=== PATIENT | female | born 1980 | race Caucasian/White ===

== ENCOUNTER 2020-05-17 09:17 | Emergency (ER) | payer SELFPAY | END 2020-05-17 10:14 | disposition home or self-care (01) | LOC: CSHERS 09:17 | DX: M54.12 Radiculopathy, cervical region (principal); F17.210 Nicotine dependence, cigarettes, uncomplicated | CPT/HCPCS: 99283 ==

== ENCOUNTER 2021-07-21 07:35 | Emergency (ER) | payer BC, SELFPAY ==
[2021-07-21] MEDS ORDERED: diphenhydrAMINE 50 MG/ML VIAL ONE (08:26)
[2021-07-21] MEDS ORDERED: Metoclopramide HCl 10 MG/2 ML VIAL ONE (08:26)
[2021-07-21] MEDS ORDERED: Ketorolac Tromethamine 30 MG/ML VIAL ONE (08:26)
[2021-07-21] MEDS ORDERED: Lidocaine 1% w/Epinephrine 1:100K 20 ML VIAL ONE (08:26)
[2021-07-21 08:28] LABS: #Basophils 0.1 10x3/uL (0.0-0.2); #Eosinphils 0.1 10x3/uL (0.0-0.5); #Monocytes 0.5 10x3/uL (0.0-1.1); #Neutrophils 2.2 10x3/uL (1.5-8.4); %Basophils 1.4 % (0.0-2.0); %Eosinophils 2.5 % (0.0-6.0); %Lymphocytes 33.4 % (18.0-47.0); %Neutrophils 50.5 % (40.0-75.0); Hemoglobin 13.1 g/dL (12.0-15.5); Mean Corpuscular HGB CONC 33.5 g/dL (32.0-36.0); Mean Corpuscular Hemoglobin 30.5 pg (27.0-33.0); Mean Corpuscular Volume 90.9 fl (81.6-98.3); Mean Platelet Volume 12.4 fl (7.4-10.4); Platelet Count 138 10x3/uL (150-450); RBC Distribution Width 12.7 % (11.5-14.5); White Blood Cell (WBC) Count 4.3 10x3/uL (3.5-10.5)
[2021-07-21 08:44] LABS: ALT (SGPT) 19 U/L (8-55); AST (SGOT) 25 U/L (5-34); Albumin 3.8 g/dL (3.5-5.0); Alkaline Phosphatase 39 U/L (40-110); Anion Gap 15 mmol/L (10-20); BUN (Urea Nitrogen) 10 mg/dL (7.0-18.7); Bilirubin, Total 0.2 mg/dL (0.2-1.2); Calc. Creatinine Clearance 0 mL/min (70-130); Calcium 8.2 mg/dL (7.8-10.44); Carbon Dioxide 24 mmol/L (22-29); Chloride 104 mmol/L (98-107); Globulin 2.7 g/dL (2.4-3.5); Glucose 87 mg/dL (70-105); Potassium 4.3 mmol/L (3.5-5.1); Protein, Total 6.5 g/dL (6.0-8.3); Sodium 139 mmol/L (136-145)
[2021-07-21 10:33] LABS: CSF RBC Count - Manual 0 /cu.mm (None Seen); CSF Source CSF; CSF WBC/NonHematics Count-Man 3 /cu.mm (0-5); Clarity Clear (Clear); Tube # 3
== END 2021-07-21 11:02 | disposition home or self-care (01) ==
LOC: CSHERS 07:35
DX: R51.9 Headache, unspecified (principal); R50.9 Fever, unspecified; F17.200 Nicotine dependence, unspecified, uncomplicated
CPT/HCPCS: 62270; 80053; 82945; 83605; 84157; 85025; 87070; 87205; 87804; 89051; 96365; 96366; 96375; J1200; J1885; J2765

== ENCOUNTER 2021-10-02 01:02 | Emergency (ER) | payer BC ==
[2021-10-02] MEDS ORDERED: Pantoprazole 40 MG VIAL ONE (02:17)
[2021-10-02] MEDS ORDERED: diphenhydrAMINE 50 MG/ML VIAL ONE (02:17)
[2021-10-02] MEDS ORDERED: Famotidine/PF 20 mg/2ml Vial ONE (02:17)
[2021-10-02] MEDS ORDERED: Metoclopramide HCl 10 MG/2 ML VIAL ONE (02:17)
[2021-10-02 02:23] LABS: #Basophils 0.1 10x3/uL (0.0-0.2); #Eosinphils 0.3 10x3/uL (0.0-0.5); #Monocytes 0.8 10x3/uL (0.0-1.1); #Neutrophils 4.9 10x3/uL (1.5-8.4); %Eosinophils 3.6 % (0.0-6.0); %Lymphocytes 32.1 % (18.0-47.0); %Monocytes 8.7 % (0.0-10.0); %Neutrophils 54.5 % (40.0-75.0); Hemoglobin 12.5 g/dL (12.0-15.5); Mean Corpuscular Hemoglobin 30.3 pg (27.0-33.0); Mean Corpuscular Volume 89.3 fl (81.6-98.3); Platelet Count 192 10x3/uL (150-450); RBC Distribution Width 13.5 % (11.5-14.5); Red Blood Cell (RBC) Count 4.12 10x6/uL (3.90-5.03); White Blood Cell (WBC) Count 8.9 10x3/uL (3.5-10.5)
[2021-10-02 02:31] LABS: BHCG - Serum Negative (NEGATIVE); Pregs Control Background? CLEAR/WHITE (CLR/WHITE); Pregs Control Bar Appear? YES (CONTROL BAR)
[2021-10-02 02:39] LABS: ALT (SGPT) 13 U/L (8-55); AST (SGOT) 15 U/L (5-34); Albumin 4.4 g/dL (3.5-5.0); Alkaline Phosphatase 39 U/L (40-110); Anion Gap 13 mmol/L (10-20); BUN (Urea Nitrogen) 11 mg/dL (7.0-18.7); Bilirubin, Total 0.2 mg/dL (0.2-1.2); Calc. Creatinine Clearance 0 mL/min (70-130); Calcium 9.2 mg/dL (7.8-10.44); Carbon Dioxide 25 mmol/L (22-29); Chloride 105 mmol/L (98-107); Estimated GFR 113; Glucose 87 mg/dL (70-105); Lipase 35 U/L (8-78); Potassium 3.9 mmol/L (3.5-5.1); Protein, Total 7.4 g/dL (6.0-8.3); Sodium 139 mmol/L (136-145)
[2021-10-02 02:55] LABS: Bilirubin Neg (Negative); Blood, Urine Negative (Negative); Clarity Clear (Clear); Glucose, Urine (Dipstick) Normal (Negative); Ketone, Urine Negative (Negative); Leukocyte Negative (Negative); Nitrite Negative (Negative); Protein, Urine (Dipstick) Negative (Neg-Trace); Urobilinogen Normal mg/dL (Less than 2)
[2021-10-02] MEDS ORDERED: Iopamidol 300 61% 100 ML VIAL FS ONE (14:51)
== END 2021-10-02 03:44 | disposition home or self-care (01) ==
LOC: CSHERS 01:02
DX: K52.9 Noninfective gastroenteritis and colitis, unspecified (principal); F17.290 Nicotine dependence, other tobacco product, uncomplicated
CPT/HCPCS: 74177; 80053; 81003; 83690; 84703; 85025; 93005; 96365; 96375; C9113; J1200; J2765; Q9967; S0028

== ENCOUNTER 2022-05-02 11:23 | Inpatient (IN) | payer BC, SELFPAY ==
[~2022-05-02 11:23] MED LIST: Iopamidol 300 61% 100 ML VIAL FS ONE
[2022-05-02 12:13] LABS: Hemoglobin 13.7 g/dL (12.0-15.5); MDiff Complete? YES; Mean Corpuscular HGB CONC 32.8 g/dL (32.0-36.0); Mean Corpuscular Hemoglobin 29.8 pg (27.0-33.0); Mean Corpuscular Volume 90.9 fl (81.6-98.3); Mean Platelet Volume 12.1 fl (7.4-10.4); Platelet Count 221 10x3/uL (150-450); RBC Distribution Width 12.9 % (11.5-14.5); White Blood Cell (WBC) Count 10.6 10x3/uL (3.5-10.5)
[2022-05-02 12:16] LABS: Bilirubin Neg (Negative); Blood, Urine 250 (Negative); Clarity Slightly Cloudy (Clear); Glucose, Urine (Dipstick) Normal (Negative); Ketone, Urine 50 mg/dL (Negative); Leukocyte Negative (Negative); Nitrite Negative (Negative); Protein, Urine (Dipstick) 15 mg/dl (Neg-Trace); Urobilinogen Normal mg/dL (Less than 2)
[2022-05-02 12:20] LABS: BHCG - Serum Negative (NEGATIVE); Pregs Control Background? CLEAR/WHITE (CLR/WHITE); Pregs Control Bar Appear? YES (CONTROL BAR)
[2022-05-02 12:26] LABS: ALT (SGPT) 13 U/L (8-55); AST (SGOT) 16 U/L (5-34); Albumin 4.6 g/dL (3.5-5.0); Alkaline Phosphatase 46 U/L (40-110); Anion Gap 13 mmol/L (10-20); BUN (Urea Nitrogen) 10 mg/dL (7.0-18.7); Bilirubin, Total 0.6 mg/dL (0.2-1.2); Calc. Creatinine Clearance 0 mL/min (70-130); Carbon Dioxide 25 mmol/L (22-29); Chloride 104 mmol/L (98-107); Estimated GFR 97; Globulin 3.1 g/dL (2.4-3.5); Glucose 87 mg/dL (70-105); Lipase 19 U/L (8-78); Potassium 4.4 mmol/L (3.5-5.1); Protein, Total 7.7 g/dL (6.0-8.3); Sodium 138 mmol/L (136-145)
[2022-05-02] MEDS ORDERED: Dicyclomine 20 MG/2 ML VIAL ONE (12:26)
[2022-05-02] MEDS ORDERED: Ondansetron PF 4 MG/2 ML Vial ONE ×3 (12:26→21:19)
[2022-05-02 12:27] LABS: Band 1 % (5-11); Eosinophils 2 % (0-10); Lymphocytes 12 % (21-51); Monocytes 2 % (0-10); Neutrophil 82 % (42-75); Reactive Lymphocytes 1 % (0-10)
[2022-05-02 12:28] LABS: Bacteria/HPF Rare-Few HPF (None Seen); RBC/HPF 0-3 HPF (0-3); Squamous Epithelial 0-3 HPF (0-3); Yeast-Budding Rare HPF (None Seen)
[2022-05-02 12:28] LABS: Platelet Morphology Comment Appears Adequate
[2022-05-02 12:30] LABS: RBC Morphology Normal
[2022-05-02] MEDS ORDERED: Haloperidol Lactate 5 MG/ML VIAL ONE (13:42)
[2022-05-02] MEDS ORDERED: Fentanyl 100 MCG/2 ML VIAL ONE ×3 (15:37→20:37)
[2022-05-02] MEDS ORDERED: HYDROmorphone 0.5 MG/0.5 ML SYRINGE ONE (17:04)
[2022-05-02 17:23] LABS: SARS-CoV-2 NAA Rapid Test Not Detected (NotDetected)
[2022-05-02] MEDS: Lactated Ringer's 1,000 ML IV SCH (19:00)
[2022-05-02 20:03] VITALS: BMI 21.8
[2022-05-02] MEDS ORDERED: metroNIDAZOLE 500 MG in Premix Bag 1 BAG IVPB SCH (20:15)
[2022-05-02] MEDS ORDERED: Bupivacaine HCl 0.5%/Epinephrine 1:200,000/PF 30 ml Vial ONE (20:27)
[2022-05-02] MEDS ORDERED: Lidocaine 1% PF 5 ML VIAL ONE (20:30)
[2022-05-02] MEDS ORDERED: Rocuronium Bromide 10 MG/ML (10ML VIAL) ONE (20:30)
[2022-05-02] MEDS ORDERED: PROPOFOL 20 ML ONE (20:30)
[2022-05-02] MEDS ORDERED: Succinylcholine 200 MG/10 ml SYRINGE FS ONE (20:31)
[2022-05-02] MEDS ORDERED: Midazolam HCl 2 mg/2 ml Vial ONE (20:39)
[2022-05-02] MEDS: Heparin 5,000 UNITS/ML VIAL SC SCH (21:00)
[2022-05-02] MEDS ORDERED: Dexamethasone 4 mg/ml Vial ONE (21:19)
[2022-05-02] MEDS ORDERED: Glycopyrrolate 0.2 MG/ML 5 ML SYRINGE ONE (21:41)
[2022-05-02] MEDS ORDERED: PHENYLEPHRINE-NS 100 MCG/ML 10 ML SYRINGE ONE (21:54)
[2022-05-02] MEDS ORDERED: diphenhydrAMINE 50 MG/ML VIAL IVP PRN (22:53)
[2022-05-02] MEDS: HYDROmorphone 0.5 MG/0.5 ML SYRINGE SLOW IVP SCH (23:30)
[2022-05-03] MEDS: Lactated Ringer's 1,000 ML IV SCH ×2 (03:30→07:13)
[2022-05-03 04:42] LABS: #Monocytes 0.6 10x3/uL (0.0-1.1); #Neutrophils 17.3 10x3/uL (1.5-8.4); %Basophils 0.1 % (0.0-2.0); %Lymphocytes 2.1 % (18.0-47.0); %Monocytes 3.1 % (0.0-10.0); %Neutrophils 94.3 % (40.0-75.0); Hemoglobin 12.5 g/dL (12.0-15.5); Mean Corpuscular HGB CONC 33.7 g/dL (32.0-36.0); Mean Corpuscular Hemoglobin 29.9 pg (27.0-33.0); Mean Corpuscular Volume 88.8 fl (81.6-98.3); Mean Platelet Volume 11.9 fl (7.4-10.4); Platelet Count 196 10x3/uL (150-450); RBC Distribution Width 12.8 % (11.5-14.5); Red Blood Cell (RBC) Count 4.18 10x6/uL (3.90-5.03); White Blood Cell (WBC) Count 18.4 10x3/uL (3.5-10.5)
[2022-05-03 04:52] LABS: ALT (SGPT) 10 U/L (8-55); AST (SGOT) 14 U/L (5-34); Albumin 3.5 g/dL (3.5-5.0); Alkaline Phosphatase 34 U/L (40-110); Anion Gap 12 mmol/L (10-20); BUN (Urea Nitrogen) 11 mg/dL (7.0-18.7); Bilirubin, Total 0.5 mg/dL (0.2-1.2); Calc. Creatinine Clearance 99 mL/min (70-130); Carbon Dioxide 22 mmol/L (22-29); Chloride 107 mmol/L (98-107); Estimated GFR 112; Globulin 2.3 g/dL (2.4-3.5); Glucose 138 mg/dL (70-105); Potassium 4.1 mmol/L (3.5-5.1); Protein, Total 5.8 g/dL (6.0-8.3); Sodium 137 mmol/L (136-145)
[2022-05-03] MEDS: HYDROmorphone 0.5 MG/0.5 ML SYRINGE SLOW IVP SCH ×3 (06:32→18:20)
[2022-05-03] MEDS: metroNIDAZOLE 500 MG in Premix Bag 1 BAG IVPB SCH ×3 (06:39→22:32)
[2022-05-03] MEDS: Heparin 5,000 UNITS/ML VIAL SC SCH ×2 (09:29→18:17)
[2022-05-03] MEDS: Ketorolac Tromethamine 30 MG/ML VIAL IVP SCH ×4 (09:30→18:17)
[2022-05-03] MEDS: 1/2 NS w/KCL 20 mEq 1,000 ML IV SCH ×3 (12:35→22:44)
[2022-05-04] MEDS: HYDROmorphone 0.5 MG/0.5 ML SYRINGE SLOW IVP SCH ×3 (00:04→12:16)
[2022-05-04 04:24] LABS: #Eosinphils 0.1 10x3/uL (0.0-0.5); #Monocytes 0.7 10x3/uL (0.0-1.1); #Neutrophils 7.3 10x3/uL (1.5-8.4); %Basophils 0.4 % (0.0-2.0); %Eosinophils 0.9 % (0.0-6.0); %Lymphocytes 15.7 % (18.0-47.0); %Neutrophils 75.7 % (40.0-75.0); Hemoglobin 10.6 g/dL (12.0-15.5); Mean Corpuscular HGB CONC 32.8 g/dL (32.0-36.0); Mean Corpuscular Hemoglobin 29.9 pg (27.0-33.0); Platelet Count 158 10x3/uL (150-450); RBC Distribution Width 13.1 % (11.5-14.5); Red Blood Cell (RBC) Count 3.55 10x6/uL (3.90-5.03); White Blood Cell (WBC) Count 9.6 10x3/uL (3.5-10.5)
[2022-05-04 04:34] LABS: Anion Gap 9 mmol/L (10-20); BUN (Urea Nitrogen) 12 mg/dL (7.0-18.7); Calc. Creatinine Clearance 105 mL/min (70-130); Calcium 7.7 mg/dL (7.8-10.44); Carbon Dioxide 25 mmol/L (22-29); Chloride 105 mmol/L (98-107); Estimated GFR 114; Glucose 95 mg/dL (70-105); Potassium 4.4 mmol/L (3.5-5.1); Sodium 135 mmol/L (136-145)
[2022-05-04] MEDS ORDERED: metroNIDAZOLE 500 MG in Premix Bag 1 BAG IVPB SCH (06:00)
[2022-05-04] MEDS: metroNIDAZOLE 500 MG in Premix Bag 1 BAG IVPB SCH ×3 (06:22→19:58)
[2022-05-04] MEDS ORDERED: traMADol HCl 50 MG TAB PO PRN (11:41)
[2022-05-04] MEDS: Ondansetron PF 4 MG/2 ML Vial IVP PRN (12:18)
[2022-05-04] MEDS: 1/2 NS w/KCL 20 mEq 1,000 ML IV SCH ×2 (12:59→19:48)
[2022-05-04] MEDS: Acetaminophen 500 MG TAB PO SCH ×2 (14:32→17:29)
[2022-05-04] MEDS: traMADol HCl 50 MG TAB PO SCH ×2 (14:32→17:29)
[2022-05-05] MEDS: Acetaminophen 500 MG TAB PO SCH ×4 (00:02→19:25)
[2022-05-05] MEDS: traMADol HCl 50 MG TAB PO SCH ×4 (00:03→19:25)
[2022-05-05] MEDS: 1/2 NS w/KCL 20 mEq 1,000 ML IV SCH ×3 (01:16→16:27)
[2022-05-05] MEDS: metroNIDAZOLE 500 MG in Premix Bag 1 BAG IVPB SCH ×3 (05:48→22:12)
[2022-05-05] MEDS: Ondansetron PF 4 MG/2 ML Vial IVP PRN ×2 (09:20→19:25)
[2022-05-06] MEDS: Acetaminophen 500 MG TAB PO SCH ×5 (00:40→18:57)
[2022-05-06] MEDS: traMADol HCl 50 MG TAB PO SCH ×5 (00:41→18:57)
[2022-05-06] MEDS: 1/2 NS w/KCL 20 mEq 1,000 ML IV SCH ×2 (01:32→09:12)
[2022-05-06] MEDS: metroNIDAZOLE 500 MG in Premix Bag 1 BAG IVPB SCH ×3 (05:29→21:26)
[2022-05-06] MEDS: Ondansetron PF 4 MG/2 ML Vial IVP PRN (13:26)
[2022-05-06] MEDS ORDERED: metroNIDAZOLE 500 MG/100 ML BAG ONE (16:22)
[2022-05-07] MEDS: Ondansetron PF 4 MG/2 ML Vial IVP PRN (00:12)
[2022-05-07] MEDS: traMADol HCl 50 MG TAB PO SCH ×5 (00:13→22:18)
[2022-05-07] MEDS: Acetaminophen 500 MG TAB PO SCH ×5 (00:13→22:17)
[2022-05-07] MEDS: metroNIDAZOLE 500 MG in Premix Bag 1 BAG IVPB SCH (05:21)
[2022-05-07] MEDS ORDERED: Metoclopramide HCl 10 MG/2 ML VIAL IVP PRN (08:40)
[2022-05-08 08:27] VITALS: BP 116/65; TEMP 98.3
== END 2022-05-08 12:20 | disposition home or self-care (01) | DRG 329 ==
LOC: SUATTDRO 11:23 → CSHERS 11:23 → CSHTELE 18:21 → OBSVTOIN 18:22
PROVIDERS: ADMIT Internal Medicine; ATTEND Hospitalist
PROC: 0DTB0ZZ Resection of Ileum, Open Approach (ICD-10-PCS; principal; 2022-05-02)
PROC: 0DTH0ZZ Resection of Cecum, Open Approach (ICD-10-PCS; 2022-05-02)
PROC: 0DJD4ZZ Inspection of Lower Intestinal Tract, Percutaneous Endoscopic Approach (ICD-10-PCS; 2022-05-02)
DX: Q43.0 Meckel's diverticulum (displaced) (hypertrophic) (principal); K65.8 Other peritonitis; K46.0 Unspecified abdominal hernia with obstruction, without gangrene; K55.9 Vascular disorder of intestine, unspecified; G89.29 Other chronic pain; F17.210 Nicotine dependence, cigarettes, uncomplicated; Z20.822 Contact with and (suspected) exposure to COVID-19; Z88.8 Allergy status to other drugs, medicaments and biological substances; Z88.0 Allergy status to penicillin
CPT/HCPCS: 36415; 74177; 80048; 80053; 81003; 81015; 82274; 83605; 83690; 84703; 85025; 88307; 96361; 96372; 96374; 96375; J0744; J1100; J1170; J1630; J1644; J1885; J2250; J2405; J2704; J2765; J3010; J3480; J7120; Q9967; U0002

== ENCOUNTER 2022-08-26 21:57 | Emergency (ER) | payer SELFPAY | END 2022-08-27 | disposition left against medical advice (07) | LOC: CSHERS 21:57 | DX: Z53.21 Procedure and treatment not carried out due to patient leaving prior to being seen by health care provider (principal) ==

== ENCOUNTER 2022-10-23 19:31 | Emergency (ER) | payer SELFPAY | END 2022-10-23 21:47 | disposition home or self-care (01) | LOC: CSHERS 19:31 | DX: S60.011A Contusion of right thumb without damage to nail, initial encounter (principal); F17.290 Nicotine dependence, other tobacco product, uncomplicated; W19.XXXA Unspecified fall, initial encounter ==

== ENCOUNTER 2023-01-26 20:19 | Emergency (ER) | payer SELFPAY ==
[2023-01-26] MEDS ORDERED: Ipratropium/Albuterol 3 ML NEB ONE ×2 (20:42→22:07)
[2023-01-26 21:15] LABS: #Basophils 0.1 10x3/uL (0.0-0.2); #Eosinphils 0.6 10x3/uL (0.0-0.5); #Monocytes 0.5 10x3/uL (0.0-1.1); %Eosinophils 7.2 % (0.0-6.0); %Lymphocytes 36.2 % (18.0-47.0); %Neutrophils 49.5 % (40.0-75.0); Hematocrit 37.9 % (34.9-44.5); Hemoglobin 12.8 g/dL (12.0-15.5); Mean Corpuscular HGB CONC 33.8 g/dL (32.0-36.0); Mean Corpuscular Hemoglobin 29.9 pg (27.0-33.0); Mean Corpuscular Volume 88.6 fl (81.6-98.3); Mean Platelet Volume 10.9 fl (7.4-10.4); Platelet Count 232 10x3/uL (150-450); RBC Distribution Width 12.6 % (11.5-14.5); Red Blood Cell (RBC) Count 4.28 10x6/uL (3.90-5.03)
[2023-01-26 21:17] LABS: ALT (SGPT) 29 U/L (8-55); AST (SGOT) 19 U/L (5-34); Albumin 4.2 g/dL (3.5-5.0); Alkaline Phosphatase 52 U/L (40-110); Anion Gap 14 mmol/L (10-20); BUN (Urea Nitrogen) 9 mg/dL (7.0-18.7); Bilirubin, Total 0.5 mg/dL (0.2-1.2); Calc. Creatinine Clearance 0 mL/min (70-130); Calcium 8.7 mg/dL (7.8-10.44); Carbon Dioxide 25 mmol/L (22-29); Chloride 101 mmol/L (98-107); Estimated GFR 112; Globulin 3.2 g/dL (2.4-3.5); Glucose 96 mg/dL (70-105); Potassium 3.4 mmol/L (3.5-5.1); Protein, Total 7.4 g/dL (6.0-8.3); Sodium 137 mmol/L (136-145)
[2023-01-26 21:28] LABS: SARS-CoV-2 NAA Rapid Test Not Detected (NotDetected)
[2023-01-26 21:30] LABS: Troponin I Less than 0.010 ng/mL (< 0.028)
[2023-01-26] MEDS ORDERED: predniSONE 20 MG TAB ONE (21:44)
== END 2023-01-26 22:35 | disposition home or self-care (01) ==
LOC: CSHERS 20:19
DX: B34.9 Viral infection, unspecified (principal); F17.290 Nicotine dependence, other tobacco product, uncomplicated; Z20.822 Contact with and (suspected) exposure to COVID-19
CPT/HCPCS: 36415; 71045; 80053; 84484; 85025; 93005; 94760; J7512; J7620

== ENCOUNTER 2024-03-07 17:47 | Emergency (ER) | payer BC, OTHER ==
[2024-03-07] MEDS ORDERED: Bacitracin 1 PK ONE (20:01)
== END 2024-03-07 20:03 | disposition home or self-care (01) ==
LOC: CSHERS 17:47
DX: S61.216A Laceration without foreign body of right little finger without damage to nail, initial encounter (principal); F17.290 Nicotine dependence, other tobacco product, uncomplicated; W26.8XXA Contact with other sharp object(s), not elsewhere classified, initial encounter
CPT/HCPCS: 99282